=== PATIENT | female | born 1940 | race Hispanic/Latino ===

== ENCOUNTER 2019-12-14 15:52 | Emergency (ER) | payer MEDICARE, SELFPAY ==
[2019-12-14] VITALS (7 sets, daily range): BP systolic 170–191; BP diastolic 84–95; PULSE 102–136; RESP 16–21; TEMP 37.6; O2SAT 98–100
--- NOTE | 2019-12-14 16:08 | ED.GENADULT ---
HPI - General Adult General Chief complaint: Animal Bite Stated complaint: bee sting, swelling to lips Time Seen by Provider: 12/14/19 16:00 History of Present Illness HPI narrative: Patient arrives with her her for a bee sting on her chin this afternoon at 230. She had pain immediately and swelling after that. They went to urgent care and got Benadryl and steroids, and was sent here. Patient's had an EpiPen for 9 years which she renews each year, but they did not use it. Now her lower lip is swollen and her chin hurts. She has not been sick in the last couple weeks. Her only surgery is cataract removal. She does not smoke, rarely drinks, does not do marijuana. She is a retired educator. She takes no prescription medications. Onset (ago): hour(s) Location: face Severity: moderate Quality: burning Relieving factors: none Exacerbating factors: none Associated symptoms: denies other symptoms Related Data Allergies Allergy/AdvReac Type Severity Reaction Status Date / Time Penicillins Allergy Mild Rash Verified 12/14/19 16:00 Review of Systems Review of Systems: Narrative: CONSTITUTIONAL: Denies fever, chills, or sweats. EYES: Denies visual changes, redness, or discharge. ENT: Denies rhinorrhea, congestion, sore throat, or otalgia. Her lower lip is swollen. Her tongue is not swollen. CARDIOVASCULAR: Denies chest pain, palpitations, or edema. RESPIRATORY: Denies cough or dyspnea. GASTROINTESTINAL: Denies abdominal pain, nausea, vomiting, or diarrhea. GENITOURINARY: Denies dysuria or hematuria. SKIN: Denies rash or itching. MUSCULOSKELETAL: Denies back pain, joint pain, or myalgia. NEUROLOGIC: Denies headache, numbness, or weakness. PSYCHIATRIC: Denies anxiety or depression. PMFSH Surgical History Surgical History (Updated 12/14/19 @ 16:11 by Becca Arora MD) History of cataract removal with insertion of prosthetic lens Social History Social History (Updated 12/14/19 @ 16:11 by Becca Arora MD) Smoking status: Never smoker Alcohol intake: current Alcohol use details: Rare use Gender identity (if verbalized by the patient): Female Exam Narrative: Exam Narrative: GENERAL: Well-appearing, well-nourished, and in no acute distress. Her lower lip is moderately swollen. HEAD: Normocephalic, atraumatic. EYES: PERRLA and EOMI. ENT: Nares clear, no rhinorrhea or epistaxis. Mucous membranes moist. Her tongue is not swollen. NECK: Supple. CHEST: Clear to auscultation. No respiratory distress. HEART: Regular rate and rhythm. No murmur heard. Normal peripheral pulses. ABDOMEN: Soft, nontender, nondistended, normal active bowel sounds. EXTREMITIES: Normal range of motion. No edema. SKIN: Warm, dry, no rash. NEURO: No focal deficits. Alert and oriented x3. PSYCH: Normal mood and affect. Course Reevaluation(s) Reevaluation #1: Went in to see the patient and her . She is feeling much better and the swelling in her lip is decreased. I recommended that she take a few more Benadryl tonight. She was worried that her pressure goes up sometimes. I recommend she try to identify the cause of her increased adrenaline at that time, and then do some meditation or calming activities. She admits that she is terrified of being stung. Date: 12/14/19 Time: 17:34 Vital Signs Vital signs: Vital Signs Temperature 99.7 F H 12/14/19 16:00 Pulse Rate 136 H 12/14/19 16:00 Respiratory Rate 20 12/14/19 16:00 Blood Pressure 191/95 H 12/14/19 16:00 Pulse Oximetry 100 12/14/19 16:00 Temperature 99.7 F H 12/14/19 16:00 Pulse Rate 104 H 12/14/19 17:01 Respiratory Rate 19 12/14/19 17:01 Blood Pressure 170/84 H 12/14/19 17:00 Pulse Oximetry 100 12/14/19 17:01 Medical Decision Making MDM Narrative Medical decision making narrative: She is having a localized effect from the bee sting on her chin and lip. Is not a systemic allergic reaction. She is already received prednisone, and Benadryl.
[2019-12-14] MEDS: ACETAMINOPHEN 325 MG TABLET 650 MG PO (16:20)
== END 2019-12-14 17:57 | disposition home or self-care (01) ==
LOC: ANHED 16:12
PROVIDERS: Emergency Provider Emergency Medicine
DX: T63.441A Toxic effect of venom of bees, accidental (unintentional), initial encounter (principal); Z98.49 Cataract extraction status, unspecified eye; Z96.1 Presence of intraocular lens
CPT/HCPCS: 99282; A9270

== ENCOUNTER 2022-04-30 14:03 | Emergency (ER) | payer MEDICARE, SELFPAY ==
[2022-04-30 14:15] VITALS: BP 161/79; PULSE 108; RESP 16; TEMP 36.6; O2SAT 100
--- NOTE | 2022-04-30 14:21 | ED.SKABFB ---
HPI - Skin/Abscess/Foreign Bdy General Chief complaint: Wound/Laceration Stated complaint: irritation on forehead, wound above rt eye Time Seen by Provider: 04/30/22 14:21 Source: patient and RN notes reviewed Mode of arrival: ambulatory Limitations: no limitations History of Present Illness HPI narrative: 81-year-old female presents with concern for painful irritation on her right-sided forehead. She reports symptoms started on Saturday. She denies general malaise, fever, body aches, chills, vision changes, eye pain. Reports she has taken Tylenol for her symptoms. Reports she got a flu vaccine shortly before the symptoms started MD complaint: rash Related Data Home Medications Medication Instructions Recorded Confirmed amlodipine 5 mg tablet mg 04/30/22 hydrochlorothiazide 25 mg tablet mg 04/30/22 levothyroxine 25 mcg tablet mcg 04/30/22 quinapril 20 mg tablet mg 04/30/22 rosuvastatin 10 mg tablet mg 04/30/22 Allergies Allergy/AdvReac Type Severity Reaction Status Date / Time Penicillins Allergy Mild Rash Verified 12/14/19 16:00 Review of Systems Review of Systems: CONSTITUTIONAL: Denies malaise, chills, sweats, or fever. EYES: Denies redness, or discharge. ENT: Denies rhinorrhea, congestion, swollen lips, swollen tongue CARDIOVASCULAR: Denies chest pain, palpitations, or edema. RESPIRATORY: Denies cough or dyspnea. GASTROINTESTINAL: Denies abdominal pain, nausea, vomiting SKIN: Reports painful rash on her forehead MUSCULOSKELETAL: Denies joint pain or myalgia. NEUROLOGIC: Denies headache. All systems reviewed & are unremarkable except as noted in HPI and below PMFSH Surgical History Surgical History (Updated 12/14/19 @ 16:11 by Becca Arora MD) History of cataract removal with insertion of prosthetic lens Social History Social History (Updated 12/14/19 @ 16:11 by Becca Arora MD) Smoking status: Never smoker Alcohol intake: current Alcohol use details: Rare use Gender identity (if verbalized by the patient): Female Comments At time of signature, agree with nursing past medical, surgical, social and family history. There is no relevant family history pertinent to the presenting complaint Exam Narrative: GENERAL: Well-appearing, well-nourished, and in no acute distress. HEAD: Normocephalic, atraumatic. EYES: PERRLA, conjunctivae clear, sclerae clear, and EOMI. ENT: Mucous membranes moist. Oropharynx without edema, erythema or lesions. NECK: Supple. No lymphadenopathy CHEST: Clear to auscultation. No respiratory distress. HEART: Regular rate and rhythm. SKIN: Warm, dry. Zoster form rash noted to the right forehead, not involving the eyelid NEURO: Alert and oriented x3. PSYCH: Normal mood and affect Course Course Emergency Course: Patient is aware of diagnosis, understands and agrees to treatment plan. Anticipatory guidance given. Patient agrees to follow-up as directed and is aware of reasons to seek care at the emergency department. Portions of this record may have been created with voice recognition software Level of Care: Express Care Visit Vital Signs Vital signs: Vital Signs Temperature 98 F 04/30/22 14:15 Pulse Rate 108 H 04/30/22 14:15 Respiratory Rate 16 04/30/22 14:15 Blood Pressure 161/79 H 04/30/22 14:15 Pulse Oximetry 100 04/30/22 14:15 Temperature 98 F 04/30/22 14:15 Pulse Rate 108 H 04/30/22 14:15 Respiratory Rate 16 04/30/22 14:15 Blood Pressure 161/79 H 04/30/22 14:15 Pulse Oximetry 100 04/30/22 14:15 Reviewed. MDM - Skin/Abscess/Foreign Bdy MDM Narrative Medical decision making narrative: Does not appear at this time to be erythema multiforme, bullous, SJS, TEN; no evidence at this time to suggest RMSF, endocarditis or Lyme disease; patient looks well, nontoxic and is tolerating oral intake; no neurologic signs or symptoms; no headache, photophobia or neck pain; afebrile; appropriate for initial outpatient treatm
== END 2022-04-30 14:43 | disposition home or self-care (01) ==
PROVIDERS: Emergency Provider Nurse Practitioner; PCP Family Medicine
DX: B02.9 Zoster without complications (principal); Z98.42 Cataract extraction status, left eye; Z98.41 Cataract extraction status, right eye; Z96.1 Presence of intraocular lens
CPT/HCPCS: 99213; G0463

== ENCOUNTER 2022-05-01 10:06 | Emergency (ER) | payer MEDICARE, SELFPAY ==
[2022-05-01 10:13] VITALS: BP 170/81; PULSE 117; RESP 16; TEMP 37.7; O2SAT 99
--- NOTE | 2022-05-01 10:33 | ED.EYEPROB ---
HPI - Eye Problem General Chief complaint: Eye Problems Stated complaint: EYE SWELLING Time Seen by Provider: 05/01/22 10:33 Source: patient Mode of arrival: ambulatory Limitations: no limitations History of Present Illness HPI Narrative: 81 y/o female presented for complaints of right eye swollen shut. [facility] sided forehead pain, with diagnosis of shingles. Started valacyclovir as directed. Patient states that her vision is blurry, but she is able to discern number of fingers held up with manual manipulation of opening eyelid and covering of her left eye. Patient reports that she is a side sleeper and slept on her right side last night. Continues to report right forehead pain. Denies eye pain. 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 chief complaint: eye pain Related Data Home Medications Medication Instructions Recorded Confirmed amlodipine 5 mg tablet mg 04/30/22 hydrochlorothiazide 25 mg tablet mg 04/30/22 levothyroxine 25 mcg tablet mcg 04/30/22 quinapril 20 mg tablet mg 04/30/22 rosuvastatin 10 mg tablet mg 04/30/22 Allergies Allergy/AdvReac Type Severity Reaction Status Date / Time Penicillins Allergy Mild Rash Verified 12/14/19 16:00 Review of Systems Review of Systems: CONSTITUTIONAL: Denies body aches, fever, chills EYES:Endorses swelling to right eye; Denies FB sensation, photophobia. Endorses blurry vision with manual opening of right eyelid. ENT: Denies otalgia. CARDIOVASCULAR: Denies chest pain, palpitations RESPIRATORY: Denies cough or dyspnea. SKIN: Reports small crusted lesion above right eyebrow appeared after right sided forehead pain. NEUROLOGIC: Denies headache, numbness, tingling, or weakness. All systems reviewed & are unremarkable except as noted in HPI and below PMFSH Surgical History Surgical History History of cataract removal with insertion of prosthetic lens Social History Social History Smoking status: Never smoker Alcohol intake: current Alcohol use details: Rare use Gender identity (if verbalized by the patient): Female Comments At time of signature, I have reviewed and agree with nursing past medical, surgical, social and family history unless otherwise noted. Please see nursing chart for further information. There is no relevant family history pertinent to the presenting complaint Exam Narrative: GENERAL: Well-appearing HEAD: Normocephalic, atraumatic. EYES: Right sided conjunctival injection, large amount of yellow purulent drainage noted to right eye lashes. Right upper eye lid swelling with occlusion; minimal right lower eye lid swelling. PERRLA, EOMI. CHEST: Clear to auscultation. HEART: Regular rate and rhythm. NEURO: No focal deficits. Alert and oriented x3 PSYCH: Normal affect. SKIN: 0.5 cm circular dry crusted lesion noted to right side of forehead above right eyebrow; forehead right of midline with demarcated area of erythema extending into the scalp and towards congregation Course Course Emergency Course: Patient is aware of diagnosis, understands and agrees to treatment plan. Anticipatory guidance given. Patient agrees to follow-up as directed and is aware of reasons to seek care at the emergency department. Portions of this record may have been created with voice recognition software Level of Care: Express Care Visit Vital Signs Vital signs: Vital Signs Temperature 99.8 F H 05/01/22 10:13 Pulse Rate 117 H 05/01/22 10:13 Respiratory Rate 16 05/01/22 10:13 Blood Pressure 170/81 H 05/01/22 10:13 Pulse Oximetry 99 05/01/22 10:13 Temperature 99.8 F H 05/01/22 10:13 Pulse Rate 117 H 05/01/22 10:13 Respiratory Rate 16 05/01/22 10:13 Blood Pressure 170/81 H 05/01
== END 2022-05-01 11:04 | disposition home or self-care (01) ==
PROVIDERS: Emergency Provider Nurse Practitioner Family; PCP Family Medicine
DX: R22.0 Localized swelling, mass and lump, head (principal); B02.9 Zoster without complications
CPT/HCPCS: 99212; G0463

== ENCOUNTER 2023-12-18 13:22 | Emergency (ER) | payer MEDICARE, SELFPAY ==
[2023-12-18 13:44] VITALS: BP 162/74; PULSE 114; RESP 16; TEMP 36.4; O2SAT 99
--- NOTE | 2023-12-18 14:38 | ED.GENADULT ---
HPI - General Adult General Chief complaint: Urogenital-Female Stated complaint: vaginal bleeding Source: patient Mode of arrival: ambulatory Limitations: no limitations History of Present Illness HPI narrative: Patient presents for evaluation of blood on the tissue when wiping after urination that she first noticed at approximately 1330 today. She has never had similar symptoms. She did not see any blood in the toilet when urinating. She has experienced some suprapubic pain that started today. Pain has been constant but rated 1.5/10 in severity. She denies any urinary frequency, dysuria, or other urinary symptoms. Denies any low back pain, fever, chills. She takes 81 mg of aspirin daily but denies use of blood thinners. She is sexually active with a female partner but does not use any type of sex toys. Related Data Home Medications Medication Instructions Recorded Confirmed amlodipine 5 mg tablet mg 04/30/22 hydrochlorothiazide 25 mg tablet mg 04/30/22 levothyroxine 25 mcg tablet mcg 04/30/22 quinapril 20 mg tablet mg 04/30/22 rosuvastatin 10 mg tablet mg 04/30/22 Allergies Allergy/AdvReac Type Severity Reaction Status Date / Time Penicillins Allergy Mild Rash Verified 12/18/23 14:08 Review of Systems Review of Systems: CONSTITUTIONAL: Denies fever, chills, or sweats. EYES: Denies visual changes, redness, or discharge. ENT: Denies rhinorrhea, congestion, sore throat, or otalgia. CARDIOVASCULAR: Denies chest pain, palpitations, or edema. RESPIRATORY: Denies cough or dyspnea. GASTROINTESTINAL: Denies abdominal pain, nausea, vomiting, or diarrhea. GENITOURINARY: reports blood on the tissue after wiping with urination. Denies urinary frequency, hesitancy, dysuria or other urinary symptoms. Reports suprapubic pain SKIN: Denies rash or itching. MUSCULOSKELETAL: Denies back pain, joint pain, or myalgia. NEUROLOGIC: Denies headache, numbness, dizziness, or weakness. PSYCHIATRIC: Denies anxiety or depression. FOR[facility]LY [facility] Past Medical History Medical History Hyperlipidemia Hypertension Surgical History Surgical History History of cataract removal with insertion of prosthetic lens Family History Family History Mother Family history non-contributory Social History Social History Smoking status: Never smoker Alcohol intake: current Alcohol use details: Rare use Gender identity (if verbalized by the patient): Female Sexual Orientation (if Verbalized by the Patient): Lesbian, Holcomb, or Homosexual Spiritual care concerns: No Exam Narrative: GENERAL: Well-appearing, well-nourished, and in no acute distress. HEAD: Normocephalic, atraumatic. EYES: PERRLA and EOMI. ENT: Nares clear, no rhinorrhea or epistaxis. Mucous membranes moist. Oropharynx without tonsillar hypertrophy exudate or other lesions. Bilateral TMs pearly morgan nonbulging NECK: Supple. No adenopathy or masses. No carotid bruits or JVD CHEST: Clear to auscultation. No respiratory distress. No wheezes rales or rhonchi HEART: Regular rate and rhythm. No murmur heard. Normal peripheral pulses. ABDOMEN: Soft, nondistended, normal active bowel sounds. There is tenderness in the suprapubic region and right lower quadrant. GENITAL: No external genital lesions. Bimanual exam not performed. There is a moderate amount of blood with thick clots noted in the vaginal vault. EXTREMITIES: Normal range of motion. No edema. SKIN: Warm, dry, no rash. NEURO: No focal deficits. Alert and oriented x3. PSYCH: Normal mood and affect. Course Course Emergency Course: This is an 83-year-old female who presented for evaluation of blood on the tissue when wiping after urination, in the setting of lower abdo
--- NOTE | 2023-12-18 15:14 | PC.NURSE ---
1500- pt ready for pelvic exam to look and see where the blood is coming from, friend at bedside for support. pt tolerated exam very well.
== END 2023-12-18 15:00 | disposition short-term general hospital (02) ==
PROVIDERS: Emergency Provider Nurse Practitioner; PCP Family Medicine
DX: N93.9 Abnormal uterine and vaginal bleeding, unspecified (principal); R10.30 Lower abdominal pain, unspecified; E78.5 Hyperlipidemia, unspecified; I10 Essential (primary) hypertension; Z79.82 Long term (current) use of aspirin
CPT/HCPCS: 81003; 87086; 87088; 99213; G0463

== ENCOUNTER 2023-12-18 15:28 | Emergency (ER) | payer MEDICARE, SELFPAY ==
--- NOTE | ~2023-12-18 | US_ITS ---
EXAMINATION: US pelvic complete w TV DATE: 12/18/2023 17:18 INDICATION: Vaginal bleeding TECHNIQUE: Multiple transabdominal and endovaginal sonographic images of the pelvis were obtained. COMPARISON: None. FINDINGS: The uterus measures 9.4 x 2.8 x 3.7 cm. The endometrial complex measures 11 mm in thickness. The rig ht and left ovaries are not visualized. There is no free fluid in the pelvis. IMPRESSION: 1. Thickened endometrial complex measuring 11 mm on transabdominal imaging which raises concern for e ndometrial carcinoma with differential including endometrial hyperplasia or clot within the endometri al complex. Recommend follow-up hysteroscopy for further evaluation. Reviewed, dictated and finalized at location A. IMPRESSION: 1. Thickened endometrial complex measuring 11 mm on transabdominal imaging whic h raises concern for endometrial carcinoma with differential including endometr ial hyperplasia or clot within the endometrial complex. Recommend follow-up hys teroscopy for further evaluation.
[2023-12-18 15:31] VITALS: BP 170/74; PULSE 111; RESP 18; TEMP 36.8; O2SAT 100
[2023-12-18 16:14] LABS: Basophils Absolute Auto 0.1 K/mm3 (0.0-0.1); Basophils Percent Auto 0.3 % (0.2-1.2); Eosinophils Percent Auto 0.2 % (0-4.4); Hematocrit 43.7 % (37.0-47.0); Immature Granulocyte Absolute 0.14 K/mm3 (0.00-0.031); Immature Granulocyte Percent A 0.8 % (0-0.5); Lymphocytes Absolute Auto 2.64 K/mm3 (0.9-3.2); Lymphocytes Percent Auto 14.3 % (18.3-44.2); Mean Corpuscular HGB Conc 34.3 g/dl (32-36); Mean Corpuscular Hemoglobin 30.8 pg (26-34); Mean Corpuscular Volume 89.7 fl (80-100); Mean Platelet Volume 9.3 fl (7.4-10.4); Monocytes Absolute Auto 1.1 K/mm3 (0.1-0.6); Monocytes Percent Auto 5.9 % (2.6-8.5); Neutrophils Absolute Auto 14.5 K/mm3 (1.3-6.7); Neutrophils Percent Auto 78.5 % (45.5-73.1); Platelet Count Result 329 k/mm3 (150-375); Red Blood Count 4.87 M/mm3 (4.2-5.4); Red Cell Distribution Width 13.1 % (11.5-14.5); White Blood Count 18.5 K/mm3 (4.5-10.0)
[2023-12-18 16:21] LABS: Alanine Aminotransferase 19 U/L (6-35); Albumin Level 4.9 g/dL (3.5-5.1); Alkaline Phosphatase 75 U/L (38-126); Anion Gap 12 mmol/L (4-12); Aspartate Amino Transferase 24 U/L (14-36); Bilirubin,Total 0.9 mg/dL (0.2-1.3); Blood Urea Nitrogen 20 mg/dL (7-17); Calcium 9.8 mg/dL (8.4-10.2); Carbon Dioxide 25 mmol/L (22-30); Chloride 97 mmol/L (98-107); Estimated Glomerular Filt Rate 60; Glucose 134 mg/dL (65-110); Lipase 78 U/L (23-300); Potassium 3.6 mmol/L (3.4-5.0); Sodium 134 mmol/L (137-145)
[2023-12-18 16:30] LABS: Appearance Urine Cloudy (Clear); Bacteria Urine None Seen /hpf; Bilirubin Urine Negative (Negative); Blood Urine 3+ (Negative); Color Urine Yellow (Yellow); Glucose Urine UA Negative (Negative); Ketones Urine 1+ mg/dL (Negative); Leukocyte Esterase Ur 1+ LEU/UL (Negative); Need Manual Microscopic Reviewed; Nitrate Urine Negative (Negative); Non Pathogenic Casts 0-2; Protein Urine 1+ mg/dL (Negative); RBC Urine >100 /hpf (0-2); Specific Grav Ur 1.021 (1.001-1.035); Squamous Epithelial Cell Urine None Seen /hpf (Few); pH Urine 5.5 (5.0-9.0)
[2023-12-18 16:34] LABS: Add Urine Microscopic? YES
--- NOTE | 2023-12-18 17:40 | ED.ABDPAIN ---
HPI - Abdominal Pain General Chief Complaint: Abdominal Pain Stated Complaint: vaginal bleeding, abd pain Time Seen by Provider: 12/18/23 15:50 History of Present Illness HPI narrative: Patient is an 83-year-old female who presents ER with vaginal bleeding. Sudden onset today. Mild pelvic cramping. Went to urgent care and had a pelvic exam that showed clot burden. No urinary frequency urgency or dysuria. No other concerns. Related Data Home Medications Medication Instructions Recorded Confirmed amlodipine 5 mg tablet mg 04/30/22 hydrochlorothiazide 25 mg tablet mg 04/30/22 levothyroxine 25 mcg tablet mcg 04/30/22 quinapril 20 mg tablet mg 04/30/22 rosuvastatin 10 mg tablet mg 04/30/22 Allergies Allergy/AdvReac Type Severity Reaction Status Date / Time Penicillins Allergy Mild Rash Verified 12/18/23 14:08 Review of Systems Constitutional: Constitutional: Reports no additional constitutional complaints Cardiovascular: Cardiovascular: Reports no additional cardiovascular complaints Respiratory: Respiratory: Reports no additional respiratory complaints Gastrointestinal: Gastrointestinal: Reports no additional gastrointestinal complaints Genitourinary: Genitourinary: Reports abnormal vaginal bleeding, Denies nocturia, Denies dysuria, Reports pelvic pain and Denies vaginal discharge [facility] Past Medical History Medical History Hyperlipidemia Hypertension Surgical History Surgical History History of cataract removal with insertion of prosthetic lens Family History Family History Mother Family history non-contributory Social History Social History Smoking status: Never smoker Alcohol intake: current Alcohol use details: Rare use Gender identity (if verbalized by the patient): Female Sexual Orientation (if Verbalized by the Patient): Lesbian, Holcomb, or Homosexual Spiritual care concerns: No Exam Narrative: GENERAL: Well-appearing, well-nourished, and in no acute distress. HEAD: Normocephalic, atraumatic. ENT: Mucous membranes moist. CHEST: Clear to auscultation. No respiratory distress. HEART: Regular rate and rhythm. Normal peripheral pulses. ABDOMEN: Soft, nontender, nondistended. EXTREMITIES: Normal range of motion. No edema. SKIN: Warm, dry, no rash. NEURO: Alert and oriented x3. PSYCH: Normal mood and affect. Course Course Emergency Course: Patient resting comfortably. Informed of results. Treat for UTI and refer to gynecology. Dr. Salazar contacted. Vital Signs Vital signs: Vital Signs Temperature 98.3 F 12/18/23 15:31 Pulse Rate 111 H 12/18/23 15:31 Respiratory Rate 18 12/18/23 15:31 Blood Pressure 170/74 H 12/18/23 15:31 Pulse Oximetry 100 12/18/23 15:31 Oxygen Delivery Room Air 12/18/23 15:31 Temperature 98.3 F 12/18/23 15:31 Pulse Rate 111 H 12/18/23 15:31 Respiratory Rate 18 12/18/23 15:31 Blood Pressure 170/74 H 12/18/23 15:31 Pulse Oximetry 100 12/18/23 15:31 Oxygen Delivery Room Air 12/18/23 15:31 MDM - Abdominal Pain Lab Data 12/18/23 16:04 12/18/23 16:04 Labs: Lab Results 12/18/23 Range/Units 16:04 WBC 18.5 H (4.5-10.0) K/mm3 RBC 4.87 (4.2-5.4) M/mm3 Hgb 15.0 (12.0-15.0) g/dL Hct 43.7 (37.0-47.0) % MCV 89.7 (80-100) fl MCH 30.8 (26-34) pg MCHC 34.3 (32-36) g/dl RDW 13.1 (11.5-14.5) % Plt Count 329 (150-375) k/mm3 MPV 9.3 (7.4-10.4) fl Immature Gran % (Auto) 0.8 H (0-0.5) % Neut % (Auto) 78.5 H (45.5-73.1) % Lymph % (Auto) 14.3 L (18.3-44.2) % [place] % (Auto) 5.9 (2.6-8.5) % Eos % (Auto) 0.2 (0-4.4) % Baso % (Auto) 0.3 (0.2-1.2) % Lymph # (Auto) 2.64 (0.9-3.2) K/mm3 [place]
[2023-12-18 18:07] VITALS: BP 139/70; PULSE 105; RESP 16; O2SAT 98
== END 2023-12-18 18:33 | disposition home or self-care (01) ==
PROVIDERS: Emergency Provider Emergency Medicine; PCP Family Medicine
DX: N95.0 Postmenopausal bleeding (principal); I10 Essential (primary) hypertension; E78.5 Hyperlipidemia, unspecified; Z96.1 Presence of intraocular lens; Z98.49 Cataract extraction status, unspecified eye; Z79.899 Other long term (current) drug therapy; R93.89 Abnormal findings on diagnostic imaging of other specified body structures
CPT/HCPCS: 36415; 76830; 76856; 80053; 81001; 81003; 83690; 85025; 87086; 99284

== ENCOUNTER 2023-12-26 01:35 | Day surgery (SDC) | payer MEDICARE, SELFPAY ==
--- NOTE | 2023-12-23 11:42 | PC.NURSE ---
Report to the Outpatient Waiting Room, entrance under the green pavilion located off [facility], at time __0600 on date __12/26/23 . Planned Procedure Time: __729 . Time changes happen often and if your time is changed the preop area will call you the afternoon before. - You and your visitor will be asked to self-screen and do not enter if you have any COVID symptoms. - A mask is optional within the hospital at this time. Patients may have clear liquids (water, carbonated beverages, clear teas, apple juice) until 3 hours prior to surgery( 4:30 AM) with a maximum of 20 ounces. - No food from midnight until time of surgery - Infants may have breast milk until 4 hours before surgery, infant formula 6 hours prior to surgery. - Children will be allowed to drink immediately following surgery. If applicable, please bring a bottle or sippy cup to assist with drinking. Juice, water, soda, and popsicles are readily available. For infants on formula, please bring formula the day of surgery. Pacifiers are allowed. Take the following medications with a SIP of water the morning of surgery: ___AMLODIPINE,LEVOTHYROXINE DO NOT STOP ANY OF YOUR OTHER PRESCRIPTION MEDICATIONS PRIOR TO SURGERY ?EXCEPT THE FOLLOWING Medications to discontinue per physician __HOLD ALL VITAMINS AND SUPPLEMENTS 3 DAYS PRE OP .LAST DOSE 12/22/23 Please no make-up, nail latvian, hairspray, perfume, deodorant, or body powder the day of surgery. No jewelry (including any body piercings) or valuables the day of surgery, leave them at home. Please take a shower or bath the night before, or the morning of, surgery with an antibacterial soap. Wear comfortable, loose fitting clothing. Children are encouraged to wear pajamas. - Jewelry must be removed prior to entering the operating room. Rings and piercings that are not removed may be cut off. - The hospital will not accept responsibility for valuables. - Please leave all valuables, including medications, at home the day of surgery. If you are going home after surgery, a licensed train driver must drive you home. - NO public transportation without another adult if you receive anesthesia. - We recommend that an adult stay with you for 24 hours following discharge. - We also recommend that you do not drive, make important decision, drink alcoholic beverages, or take any drugs that were not prescribed by your health care provider for at least 24 hours after your discharge time. . Follow any additional instructions given to you from your surgeon. If you or anyone in your household have experienced Covid symptoms in the past week, please notify your surgeon or the nurse liaison at the phone number below for possible testing. Telephone instructions given to ___PATIENT and asked if any additional questions and then verbalized understanding. Patient advised to call surgeon office or pre surgery nurse liaison [phone] if any additional questions.
[2023-12-23 11:47] VITALS: BMI 31.5
--- NOTE | 2023-12-25 15:36 | PM.IMHP ---
H&P: HPI History of Present Illness Date/Time: 12/25/23 15:36 Chief Complaint: Postmenopausal bleeding thickened endometrium on US Narrative: 83-year-old female who presents for hysteroscopy D&C for postmenopausal bleeding. Patient states that last Saturday she had an episode of vaginal bleeding. Patient presented to urgent care for evaluation. Patient was then transferred to [facility] for pelvic ultrasound. Pelvic ultrasound showed a thickened endometrial complex measuring 11 mm. Patient states her bleeding stopped on Saturday. Patient states it was mostly light spotting. Patient states she has not had any menses since her late 20s. Patient states she had irregular cycles and infertility issues in her youth. Patient states she required injectables to start cycles when she was younger. Patient denies any hormone replacement therapy. Patient is in a same-sex relationship. Patient does not tolerate pelvic exams. Review of Systems Cardiovascular: Cardiovascular: Denies chest pain, Denies leg edema, Denies palpitations, Denies dyspnea and Denies dyspnea on exertion Respiratory: Respiratory: Denies cough, Denies dyspnea and Denies dyspnea on exertion Gastrointestinal: Gastrointestinal: Denies abdominal pain, Denies constipation, Denies diarrhea, Denies nausea and Denies vomiting Genitourinary: Genitourinary: Denies hematuria, Denies urinary frequency, Denies dysuria, Denies pelvic pain, Denies urinary incontinence and Denies vaginal discharge Neurologic: Reports system reviewed and no additional complaints, except as documented Psychiatric: Psychiatric: Reports no additional psychiatric complaints Endocrine: Endocrine: Denies palpitations PMFSH Past Medical History Medical History (Updated 12/23/23 @ 09:23 by Arthur Salazar MD) Diabetes Hyperlipidemia Hypertension Surgical History Surgical History (Updated 12/23/23 @ 08:53 by Leatha Veloz CMA) H/O skin graft History of cataract removal with insertion of prosthetic lens Family History Family History (Updated 12/23/23 @ 08:53 by Leatha Veloz CMA) Mother Family history non-contributory Diabetes mellitus Hypertension Father Diabetes mellitus Hypertension Social History Social History (Updated 12/23/23 @ 08:54 by Leatha Veloz CMA) Smoking status: Never smoker Alcohol intake: current Alcohol use details: Rare use Substance use: never Do You Feel Safe in your Home?: Yes Lack of Transportation: No Lack of Food: Never True Current Housing: I Have Housing Concerned About Future Housing: No Difficulty Paying Gas/Electric Bills: No Difficulty Paying for Meds: No Currently Unemployed: No Education: Master's Degree or Higher Difficulty w/ Childcare or Family Care: No Living arrangements: with family Occupation/Education: retired Gender identity (if verbalized by the patient): Female Sexual Orientation (if Verbalized by the Patient): Lesbian, Holcomb, or Homosexual Spiritual care concerns: No Meds Home Medications and Allergies Home Medications Medication Instructions Recorded Confirmed Type amlodipine 5 mg tablet 5 mg PO QAM 04/30/22 12/23/23 History hydrochlorothiazide 25 mg tablet 25 mg PO DAILY 04/30/22 12/23/23 History levothyroxine 25 mcg tablet 25 mcg PO DAILY 04/30/22 12/23/23 History rosuvastatin 10 mg tablet 10 mg PO HS 04/30/22 12/23/23 History cholecalciferol (vitamin D3) 125 125 mcg PO DAILY 12/23/23 12/23/23 History mcg (5,000 unit) tablet cyanocobalamin (vitamin B-12) 1,000 mcg sublingual DAILY 12/23/23 12/23/23 History 1,000 mcg sublingual tablet lisinopril 40 mg tablet 40 mg PO QPM 12/23/23 12/23/23 History Allergies Allergy/AdvReac Type Severity Reaction Status Date / Time Penicillins Allergy Mild Rash Verified 12/23/23 11:29 Exam Const: General: no acute distress Eyes: EOM: EOMs intact bilaterally Neck: Neck: supple Thyroid: thyroid normal Ch
[2023-12-26 06:02] VITALS: BP 148/68; PULSE 97; RESP 16; TEMP 36.7; O2SAT 100; BMI 30.9
--- NOTE | 2023-12-26 06:29 | WPDANESEPPF ---
Anes - Initial Pre Proc Eval Procedure: Operation Date: 12/26/23 07:30 Proposed Procedures p Hysteroscopy Dilation and Curettage - Arthur Salazar MD Date/Time: 12/26/23 06:29 Surgeon: Arthur Salazar MD Pre Op Diagnosis: postmenopausal bleeding Patient Data Age: 83 Gender: F Height: 1.5 m Weight: 70.8 kg Allergies Allergy/AdvReac Type Severity Reaction Status Date / Time Penicillins Allergy Mild Rash Verified 12/23/23 11:29 Home Medications Medication Instructions Recorded Confirmed Type amlodipine 5 mg tablet 5 mg PO QAM 04/30/22 12/23/23 History hydrochlorothiazide 25 mg tablet 25 mg PO DAILY 04/30/22 12/23/23 History levothyroxine 25 mcg tablet 25 mcg PO DAILY 04/30/22 12/23/23 History rosuvastatin 10 mg tablet 10 mg PO HS 04/30/22 12/23/23 History cholecalciferol (vitamin D3) 125 125 mcg PO DAILY 12/23/23 12/23/23 History mcg (5,000 unit) tablet cyanocobalamin (vitamin B-12) 1,000 mcg sublingual DAILY 12/23/23 12/23/23 History 1,000 mcg sublingual tablet lisinopril 40 mg tablet 40 mg PO QPM 12/23/23 12/23/23 History Patient hx anesthesia problems: none Family hx anesthesia problems: none Results Review: All pre-operative results and documents have been reviewed as part of the pre-operative evaluation. [facility] Past Medical History Medical History Diabetes Hyperlipidemia Hypertension Surgical History Surgical History H/O skin graft History of cataract removal with insertion of prosthetic lens Family History Family History Mother Family history non-contributory Diabetes mellitus Hypertension Father Diabetes mellitus Hypertension Social History Social History Smoking status: Never smoker Alcohol intake: current Alcohol use details: Rare use Substance use: never Do You Feel Safe in your Home?: Yes Lack of Transportation: No Lack of Food: Never True Current Housing: I Have Housing Concerned About Future Housing: No Difficulty Paying Gas/Electric Bills: No Difficulty Paying for Meds: No Currently Unemployed: No Education: Master's Degree or Higher Difficulty w/ Childcare or Family Care: No Living arrangements: with family Occupation/Education: retired Gender identity (if verbalized by the patient): Female Sexual Orientation (if Verbalized by the Patient): Lesbian, Holcomb, or Homosexual Spiritual care concerns: No Anes - Eval Final PreProcedure Day of Procedure 12/26/23 06:29 Patient weight: obese Heart: regular rate and rhythm Lungs: clear to auscultation Airway: Mallampati scale class II Neurological: alert and oriented Last oral intake: >/= 8 hours ASA classification: III Emergent: no Anesthetic plan: proceed Anesthesia type and monitoring: general GIVS and standard monitoring Results Review: All pre-operative results and documents have been reviewed as part of the pre-operative evaluation. Informed Consent: The patient's anesthetic plan and its attendant risks and benefits were discussed with the patient/family/POA. Questions were solicited and answers provided to the satisfaction of the patient/family/POA.
[2023-12-26] MEDS: LACTATED RINGERS 1,000 ML 30 ML IV CONT (07:05)
--- NOTE | 2023-12-26 07:17 | WPDHPUPDATE1 ---
History and Physical Update Update Date/Time: 12/26/23 07:17 History and Physical has been reviewed, including an updated exam of the patient. There are NO changes in the patient's condition. Risks, benefits, and alternatives have been discussed and questions answered. Patient agrees to proceed with procedure.
[2023-12-26] MEDS: ACETAMINOPHEN 500 MG TABLET 1000 MG PO (07:22)
--- NOTE | 2023-12-26 08:00 | W.PM.PROC2 ---
Procedure Note - Detailed Date of Procedure 12/26/23 Pre-op Diagnosis postmenopausal bleeding thickened endometrium on US Post-op Diagnosis Same Procedure Performed hysteroscopy dilation & curettage Surgeon Arthur Salazar MD Anesthesia General Indications abnormal uterine bleeding Findings old dark blood collection within the endometrial cavity, narrowed and atrophic vaginal lumen Description of Procedure Julieta Dewitt presents for the above procedure. She was counseled as to the indications, risks, benefits, and alternatives to surgery, with the risks including bleeding, infection, damage to surrounding organs, VTE, and complications of anesthesia. Her verbal and written consent was obtained. PROCEDURE: The patient was taken to the OR and general anesthesia induced. She was prepped and draped in Gio stirrups with support of the back and bilateral lower extremities. A leia narrow speculum was used due to atrophy and a narrowed vaginal lumen. A single tooth tenaculum was placed on the anterior lip of the cervix. The uterus sounded to 7 cm. Hysteroscopy, using a normal saline medium, was performed and showed the above findings. Sharp uterine curettage was then performed and tissue placed on Telfa. The tenaculum was removed and hemostasis was observed. A small 0.5 cm laceration was obtained to the posterior vaginal mucosa due to the speculum. The laceration was made hemostatic with one figure of eight suture of 3-0 vicryl. The patient tolerated the procedure well. Sponge, lap, and needle counts were correct. The patient had SCD's on throughout the case for VTE prophylaxis. The patient was taken to the recovery room in stable condition. Estimated Blood Loss 20 Drains No Packing No Pathology Yes (endometrial curettings ) Complications No immediate complications Condition Stable Disposition PACU [facility] Billing Surgery - Charge Forward: Surgery Billing
[2023-12-26 08:03] VITALS: BP 112/62; PULSE 86; RESP 16; O2SAT 95
[2023-12-26 08:28] LABS: Glucose Point of Care 106 mg/dl (65-105)
[2023-12-26 08:30] VITALS: BP 124/72; PULSE 84; RESP 18; O2SAT 99
[2023-12-26 09:00] VITALS: BP 155/81; PULSE 81; RESP 16
[2023-12-26 09:25] VITALS: BP 140/79; PULSE 82; RESP 18
== END 2023-12-26 09:33 | disposition home or self-care (01) ==
PROVIDERS: PCP Family Medicine; Visit Provider Student in an Organized Health Care Education/Training Program
PROC: 0U5B8ZZ Destruction of Endometrium, Via Natural or Artificial Opening Endoscopic (ICD-10-PCS; CPT 58563; principal; 2023-12-26 07:30)
DX: N95.0 Postmenopausal bleeding (principal); I10 Essential (primary) hypertension; E11.9 Type 2 diabetes mellitus without complications; E78.5 Hyperlipidemia, unspecified; E66.9 Obesity, unspecified; Z68.30 Body mass index [BMI] 30.0-30.9, adult
CPT/HCPCS: 58558; 82948; 88305; 88342; A9270; J2704; J3010; J7120